=== PATIENT | female | born 1995 ===

== ENCOUNTER 2018-02-20 11:37 | Outpatient (CLI) | payer OTHER ==
[~2018-02-20 11:37] MED LIST: OSEL75CA PO
== END 2018-02-20 11:38 | disposition home or self-care (01) ==
LOC: LAB 11:37
DX: N39.0 Urinary tract infection, site not specified (principal)

== ENCOUNTER 2019-10-21 12:35 | Outpatient (CLI) | payer OTHER | END 2019-10-22 14:04 | disposition home or self-care (01) | LOC: OBS/DEL 12:35 | DX: O23.43 Unspecified infection of urinary tract in pregnancy, third trimester (principal); O26.843 Uterine size-date discrepancy, third trimester; O36.8131 Decreased fetal movements, third trimester, fetus 1 ==

== ENCOUNTER 2019-11-24 08:09 | Inpatient (IN) | payer OTHER ==
[~2019-11-24] VITALS: Ht 165.1 cm; Wt 76.2 kg
[2019-11-24] MEDS ORDERED: PRENATAL TABLE1 EAC1 PO (10:11)
[2019-11-24] MEDS ORDERED: MACROBID 100 M100 MG PO (16:18)
== END 2019-11-26 15:38 | disposition home or self-care (01) | DRG 807 ==
LOC: SURG-SUITE 08:09 → LDR 08:09 → SURG-SUITE 21:54
PROVIDERS: ADMIT Obstetrics & Gynecology
PROC: 10E0XZZ Delivery of Products of Conception, External Approach (ICD-10-PCS; principal; 2019-11-24)
PROC: 0KQM0ZZ Repair Perineum Muscle, Open Approach (ICD-10-PCS; 2019-11-24)
PROC: 3E0P7VZ Introduction of Hormone into Female Reproductive, Via Natural or Artificial Opening (ICD-10-PCS; 2019-11-24)
PROC: 3E033VJ Introduction of Other Hormone into Peripheral Vein, Percutaneous Approach (ICD-10-PCS; 2019-11-24)
PROC: 10907ZC Drainage of Amniotic Fluid, Therapeutic from Products of Conception, Via Natural or Artificial Opening (ICD-10-PCS; 2019-11-24)
PROC: 4A1HXCZ Monitoring of Products of Conception, Cardiac Rate, External Approach (ICD-10-PCS; 2019-11-24)
DX: O70.1 Second degree perineal laceration during delivery (principal); Z37.0 Single live birth; Z3A.39 39 weeks gestation of pregnancy

== ENCOUNTER 2024-04-15 14:08 | Outpatient (CLI) | payer OTHER ==
[~2024-04-15 14:08] MED LIST changes: +MACROBID 100 M100 MG PO; +PRENATAL TABLE1 EAC1 PO
== END 2024-04-15 14:10 | disposition home or self-care (01) ==
LOC: PRENATAL 14:08
PROVIDERS: ATTEND Obstetrics & Gynecology Maternal & Fetal Medicine
DX: O36.80X0 Pregnancy with inconclusive fetal viability, not applicable or unspecified (principal); Z36.82 Encounter for antenatal screening for nuchal translucency; Z36.9 Encounter for antenatal screening, unspecified; Z3A.12 12 weeks gestation of pregnancy

== ENCOUNTER → 2024-06-10 10:40 | Outpatient (CLI) | payer OTHER | END | disposition home or self-care (01) | LOC: PRENATAL 10:40 | PROVIDERS: ATTEND Obstetrics & Gynecology Maternal & Fetal Medicine | DX: O35.3XX0 Maternal care for (suspected) damage to fetus from viral disease in mother, not applicable or unspecified (principal); O44.00 Complete placenta previa NOS or without hemorrhage, unspecified trimester; Z3A.20 20 weeks gestation of pregnancy ==

== ENCOUNTER 2024-07-25 17:40 | Outpatient (CLI) | payer OTHER ==
[2024-07-25 16:46] VITALS: BP 110/73
[2024-07-25] MEDS ORDERED: RINGERS SOLUTION,LACTATED 1,000 ML IV SCH (18:00)
[2024-07-25 18:32] LABS: HEMOGLOBIN 12.2 g/dL (12.0-15.00); MEAN CELL VOLUME 88.7 fL (80.00-100.00); MEAN CORPUSCULAR HEMOGLOBIN 30.1 pg (27.00-32.0); PLATELET COUNT 279 K/uL (150-450); RED BLOOD COUNT 4.06 M/uL (4.00-6.00); RED CELL DISTRIBUTION WIDTH 13.5 % (11.5-14.5); URINE APPEARANCE Clear; URINE BILIRRUBIN Negative (NEGATIVE); URINE BLOOD Negative; URINE COLOR Yellow; URINE GLUCOSE Negative (NEGATIVE); URINE KETONE 15 (NEGATIVE); URINE LEUKOCYTE Negative; URINE NITRATE Negative; URINE PROTEIN Negative (NEGATIVE); URINE UROBILINOGEN 0.2 E.U./dl
[2024-07-25 18:35] LABS: URINE BACTERIA 714.6 uL (0.0-1933); URINE EPITHELIAL CELLS 13.4 uL (0.0-38.8)
[2024-07-25 18:38] LABS: URINE RBC 0.4 uL (0.0-20.8)
[2024-07-25] MEDS ORDERED: GUAIFENESIN 200 MG/10 ML BLIST.PACK PO SCH (19:10)
[2024-07-25] MEDS ORDERED: CEFAZOLIN SODIUM 1,000 MG VIAL IV ONE (19:15)
[2024-07-25] MEDS ORDERED: CEFAZOLIN SODIUM 1,000 MG VIAL IV SCH (20:00)
[2024-07-25 23:25] VITALS: BP 93/53
[2024-07-26 03:21] VITALS: BP 94/50; O2SAT 97
[2024-07-26] MEDS ORDERED: ZITHROMAX500 MG PO (07:33)
[2024-07-26] MEDS ORDERED: CVS TUSSIN DM237 M2 PO (07:33)
[2024-07-26 07:36] VITALS: BP 105/68
[2024-07-26 09:18] VITALS: BP 105/68
== END 2024-07-26 09:18 | disposition home or self-care (01) ==
LOC: OBS/DEL 17:40
PROVIDERS: Specialist; ATTEND Obstetrics & Gynecology
DX: O98.512 Other viral diseases complicating pregnancy, second trimester (principal); B33.8 Other specified viral diseases; Z3A.26 26 weeks gestation of pregnancy; A49.3 Mycoplasma infection, unspecified site; R53.81 Other malaise; Z88.2 Allergy status to sulfonamides; Z91.040 Latex allergy status

== ENCOUNTER 2024-09-02 08:35 | Outpatient (CLI) | payer OTHER ==
[~2024-09-02 08:35] MED LIST changes: +CVS TUSSIN DM237 M2 PO; +ZITHROMAX500 MG PO
== END 2024-09-02 08:36 | disposition home or self-care (01) ==
LOC: PRENATAL 08:35
PROVIDERS: ATTEND Obstetrics & Gynecology Maternal & Fetal Medicine
DX: O26.849 Uterine size-date discrepancy, unspecified trimester (principal); O36.8199 Decreased fetal movements, unspecified trimester, other fetus; Z3A.31 31 weeks gestation of pregnancy